=== PATIENT | female | born 1960 | race Caucasian/White ===

== ENCOUNTER 2017-06-05 08:20 | Emergency (ER) | payer OTHER ==
[2017-06-05 08:30] VITALS: RESP 18
--- NOTE | 2017-06-05 08:41 | CPEKG ---
Heart Rate: 71 RR Interval: 845 P-R Interval: 196 QRSD Interval: 98 QT Interval: 396 QTC Interval: 431 P [place]: 8 QRS [place]: 39 T Wave [place]: 56 EKG Severity - NORMAL ECG - EKG Impression: SINUS RHYTHM Electronically Signed By: Katerine Rojas 05-Jun-2017 16:22:13
--- NOTE | 2017-06-05 08:42 | EDPHY ---
HPI/HX/ROS/PE/MDM Narrative: CHIEF COMPLAINT: Chest pain HISTORY OF PRESENT ILLNESS: The patient is a 57-year-old female presenting with intermittent chest pain for the past few weeks. The pain lasts for a few minutes in duration. She had 1 episode 2 days ago that remained constant throughout the day. She has occasional lightheadedness and shortness of breath associated with the chest pain. She has noticed increased shortness of breath with exertion over the past month. This morning she developed chest pain around 7am. She had associated nausea, no emesis. No known aggravating or alleviating factors. No fever, chills, vomiting , diarrhea, urinary complaints, headache. Patient has a history of reflux, on Omeprazole. She states she has throat burning with her reflux, no chest pain. No history of DVT or PE. Father with cardiac history, [place] age 55. REVIEW OF SYSTEMS: Aside from elements discussed in the HPI, a comprehensive 10-point review of systems was reviewed and is negative. PAST MEDICAL HISTORY: Colitis, Hypertension, Anxiety SOCIAL HISTORY: Occasional alcohol. Nonsmoker VITAL SIGNS: Reviewed by me GENERAL: Well-developed, well-nourished, resting comfortably in no respiratory distress. HEENT: Atraumatic. Eyes: No icterus, no injection. Mouth: moist mucous membranes. No erythema or lesions. Neck: supple with no adenopathy. LUNGS: Clear to auscultation bilaterally, no wheezes, rhonchi or rales. CARDIAC: Regular rate and rhythm, no rubs, murmurs or gallops. ABDOMEN: Soft, nontender, nondistended, bowel sounds normal. BACK: No CVA tenderness. EXTREMITIES: No trauma. No edema. Range of motion is normal throughout. NEURO: Alert and oriented, grossly nonfocal. SKIN: Warm and dry, no rash. PSYCHIATRIC: Normal mentation, no agitation. ED Course: 12-LEAD EKG: Please see the full report in [facility]. My interpretation: Sinus rhythm. No ischemic changes. Chest x-ray is negative. D-dimer is normal. Troponin is normal. Lab work is otherwise unremarkable. 10:35 a.m.: I spoke to the hospitalist team. The patient will be admitted to Dr. Sanchez for further evaluation and observation. 10:50 a.m.: I discussed findings with the patient. I recommended admission to the hospital. I held a long discussion with the patient as well as her concerning the limitations of the emergency department evaluation and the need for further testing and serial enzymes. Patient reports that she does not want to be admitted to the hospital. She understands that she needs to have urgent risk stratification. She states that she does not want to stay overnight in the hospital. She also reports to me that she will not be able to get a stress test on Wednesday or Wednesday and that she is leaving the country on . I again advised the patient that given her history urgent stress test urgent risk stratification was certainly appropriate and she continued to decline my recommendations. Plan for serial Troponin. Repeat Troponin was normal. Patient would like to be discharged home. Strict return precautions given. Patient was given the number to [facility] and encouraged to follow up on Wednesday if at all possible for stress testing. I believe the patient is competent decision maker. Her was also in the room. They understand the limitations of the emergency department evaluation. The understand the importance of follow-up as well as importance of returning to the emergency department if the symptom complex should return or worsen. MDM: After history and physical examination, the differential for chest pain was considered, including but not limited to, myocardial ischemia, acute coronary syndrome, pulmonary embolus, chest wall pain, GERD, esophageal spasm, reflux, pleural inflammation and pulmonary infectious causes. - Data Points Imaging Results: Imaging Impressions Chest X-Ray 06/05/17 09:29 Impression: No acute findings in the chest. Imaging: I viewed and interpreted images myself Laboratory Results: Laboratory Results 06/05/17 08:40 06/05/17 08:40 06/05/17 06/05/17 06/05/17 12:40 11:03 08:40 WBC RBC Hgb Hct MCV MCH MCHC RDW Plt Count MPV Neut % (Auto) Lymph % (Auto) [place] % (Auto) Eos % (Auto) Baso % (Auto) Nucleat RBC Rel Count Absolute Neuts (auto) Absolute Lymphs (auto) Absolute Monos (auto) Absolute Eos (auto) Absolute Basos (auto) Absolute Nucleated RBC Immature Gran % Immature Gran # D-Dimer Sodium 140 mEq/L mEq/L (134-144) Potassium 4.0 mEq/L mEq/L (3.5-5.2) Chloride 103 mEq/L mEq/L (97-110) Carbon Dioxide 25 mEq/l mEq/l (22-31) Anion Gap 12 mEq/L mEq/L (8-16) BUN 15 mg/dL mg/dL (7-23) Creatinine 0.7 mg/dL mg/dL (0.6-1.0) Estimated GFR > 60 Glucose 86 mg/dL mg/dL (70-100) Calcium 9.5 mg/dL mg/dL (8.5-10.4) Total Bilirubin 0.6 mg/dL mg/dL (0.1-1.4) Conjugated Bilirubin 0.4 mg/dL mg/dL (0.0-0.5) Unconjugated Bilirubin 0.2 mg/dL mg/dL (0.0-1.1) AST 25 IU/L IU/L (14-46) ALT 26 IU/L IU/L (9-52) Alkaline Phosphatase 78 IU/L IU/L (38-126) Creatine Kinase 82 IU/L IU/L (0-156) CK-MB (CK-2) Fraction 0.71 ng/mL ng/mL (0.00-3.19) Troponin I < 0.012 ng/mL ng/mL < 0.012 ng/mL ng/mL < 0.012 ng/mL ng/mL (0.000-0.034) (0.000-0.034) (0.000-0.034) NT-Pro-B Natriuret Pep 91 pg/mL pg/mL (0-125) Total Protein 6.7 g/dL g/dL (6.3-8.2) Albumin 4.1 g/dL g/dL (3.5-5.0) Lipase 66 IU/L IU/L (23-300) 06/05/17 06/05/17 08:40 08:40 WBC 4.64 10^3/uL 10^3/uL (3.80-9.50) RBC 4.55 10^6/uL 10^6/uL (4.18-5.33) Hgb 12.6 g/dL g/dL (12.6-16.3) Hct 39.8 % % (38.0-47.0) MCV 87.5 fL fL (81.5-99.8) MCH 27.7 pg L pg (27.9-34.1) MCHC 31.7 g/dL L g/dL (32.4-36.7) RDW 15.7 % H % (11.5-15.2) Plt Count 262 10^3/uL 10^3/uL (150-400) MPV 9.4 fL fL (8.7-11.7) Neut % (Auto) 66.1 % % (39.3-74.2) Lymph % (Auto) 24.1 % % (15.0-45.0) [place] % (Auto) 6.7 % % (4.5-13.0) Eos % (Auto) 2.2 % % (0.6-7.6) Baso % (Auto) 0.9 % % (0.3-1.7) Nucleat RBC Rel Count 0.0 % % (0.0-0.2) Absolute Neuts (auto) 3.07 10^3/uL 10^3/uL (1.70-6.50) Absolute Lymphs (auto) 1.12 10^3/uL 10^3/uL (1.00-3.00) Absolute Monos (auto) 0.31 10^3/uL 10^3/uL (0.30-0.80) Absolute Eos (auto) 0.10 10^3/uL 10^3/uL (0.03-0.40) Absolute Basos (auto) 0.04 10^3/uL 10^3/uL (0.02-0.10) Absolute Nucleated RBC 0.00 10^3/uL 10^3/uL (0-0.01) Immature Gran % 0.0 % % (0.0-1.1) Immature Gran # 0.00 10^3/uL 10^3/uL (0.00-0.10) D-Dimer 0.32 ug/mLFEU ug/mLFEU (0.00-0.50) Sodium Potassium Chloride Carbon Dioxide Anion Gap BUN Creatinine Estimated GFR Glucose Calcium Total Bilirubin Conjugated Bilirubin Unconjugated Bilirubin AST ALT Alkaline Phosphatase Creatine Kinase CK-MB (CK-2) Fraction Troponin I NT-Pro-B Natriuret Pep Total Protein Albumin Lipase Medications Given: Discontinued Medications Aspirin (Aspirin) 324 mg PO EDNOW ONE Stop: 06/05/17 09:34 Last Admin: 06/05/17 09:38 Dose: 324 mg General Time Seen by Provider: 06/05/17 08:34 Initial Vital Signs: Initial Vital Signs Temperature (C) 36.4 C 06/05/17 08:27 Heart Rate 72 06/05/17 08:27 Respiratory Rate 18 06/05/17 08:27 Blood Pressure 140/76 H 06/05/17 08:27 O2 Sat (%) 96 06/05/17 08:27 O2 Delivery Mode Room Air O2 (L/minute) 2 Allergies/Adverse Reactions: No Known Allergies Allergy (Verified 05/25/15 07:32) Home Medications: Medication Instructions Recorded Acetaminophen [Tylenol Arthritis] 650 mg PO DAILY 06/05/17 Bupropion HCl [Wellbutrin Xl] 300 mg PO DAILY 06/05/17 Escitalopram Oxalate [Lexapro] 10 mg PO DAILY 06/05/17 Escitalopram Oxalate [Lexapro] 20 mg PO DAILY 06/05/17 Gabapentin [Neurontin 300 MG (*)] 300 mg PO DAILY 06/05/17 Gabapentin [Neurontin] 600 mg PO HS 06/05/17 Naproxen Sodium [Aleve 220 MG (*)] 440 mg PO DAILY 06/05/17 Omeprazole [Prilosec 20 mg] 20 mg PO DAILY 06/05/17 Prazosin HCl [Minipress 1mg (*)] 1 mg PO HS 06/05/17 Valsartan/Hydrochlorothiazide 1 each PO DAILY 06/05/17 [Valsartan-Hctz 160-25 mg Tab] buPROPion XL [Wellbutrin Xl] 150 mg PO DAILY 06/05/17 Departure - Departure Disposition: Home, Routine, Self-Care Clinical Impression: Chest pain Qualifiers: Chest pain type: unspecified Qualified Code(s): R07.9 - Chest pain, unspecified Condition: Good Instructions: Chest Pain (ED) Additional Instructions: 1. I recommend taking 81mg Aspirin daily. 2. You been recommended to be admitted to the hospital. You understand that we cannot rule out coronary artery disease. You understand the delay in further testing may result in serious consequences such as heart attack, heart failure, palpitations, irregular heart rate, seizure, stroke. 3. You have been referred to the correctional case manager mechanical intern below. Please call to arrange followup. 3. Return to the Emergency Department with severe chest pain, shortness of breath, palpitations, nausea, or worsening concerns. Referrals: Earlene Guevara MD [Primary Care Provider] - As per Instructions Clarisse Burnham MD [Medical Doctor] - As per Instructions (Cardiology) Report Scribed for: Katerine Rojas Report Scribed by: Albina Dykes Date of Report: 06/05/17 Time of Report: 08:41 Physician Review and Approval Statement: Portions of this note were transcribed by a medical biller coder. I personally performed a history, physical exam, medical decision making, and confirmed accuracy of information the transcribed note.
[2017-06-05 09:33] LABS: ADD DIFF? NO; ADD MORPH? NO; ADD SCAN? NO; ATYPICAL LYMPHOCYTE FLAG 0 (0-99); FRAGMENT RBC FLAG 0 (0-99); HEMATOCRIT 39.8 % (38.0-47.0); HEMOGLOBIN 12.6 g/dL (12.6-16.3); LEFT SHIFT FLG 0 (0-99); LIPEMIA HEMOLYSIS FLAG 80 (0-99); MEAN CELL HEMOGLOBIN 27.7 pg (27.9-34.1); MEAN CELL HEMOGLOBIN CONCENTR. 31.7 g/dL (32.4-36.7); MEAN CELL VOLUME 87.5 fL (81.5-99.8); MEAN PLATELET VOLUME 9.4 fL (8.7-11.7); PLATELET CLUMPS FLAG 20 (0-99); PLATELET COUNT 262 10^3/uL (150-400); RED BLOOD CELL COUNT 4.55 10^6/uL (4.18-5.33); RED CELL DISTRIBUTION WIDTH 15.7 % (11.5-15.2)
[2017-06-05] MEDS: ASPIRIN 81 MG CHEWABLE TAB PO ONE ×2 (09:38)
[2017-06-05 09:42] LABS: ALANINE AMINOTRANSFERASE 26 IU/L (9-52); ALBUMIN 4.1 g/dL (3.5-5.0); ALKALINE PHOSPHATASE 78 IU/L (38-126); ANION GAP 12 mEq/L (8-16); ASPARTATE AMINOTRANSFERASE 25 IU/L (14-46); BILIRUBIN,TOTAL 0.6 mg/dL (0.1-1.4); BILIRUBIN-CONJUGATED 0.4 mg/dL (0.0-0.5); BILIRUBIN-UNCONJUGATED 0.2 mg/dL (0.0-1.1); CALCIUM 9.5 mg/dL (8.5-10.4); CARBON DIOXIDE 25 mEq/l (22-31); CHLORIDE 103 mEq/L (97-110); CREATININE 0.7 mg/dL (0.6-1.0); GLOMERULAR FILTRATION RATE > 60; GLUCOSE 86 mg/dL (70-100); SODIUM 140 mEq/L (134-144); TOTAL PROTEIN 6.7 g/dL (6.3-8.2)
[2017-06-05 09:53] LABS: TROPONIN I < 0.012 ng/mL (0.000-0.034)
[2017-06-05] MEDS ORDERED: ONDANSETRON DISINTEGRATING 4 MG TAB PO PRN (10:44)
[2017-06-05] MEDS ORDERED: HYDROCODONE/APAP 5/325 TAB PO PRN (10:44)
[2017-06-05] MEDS ORDERED: ACETAMINOPHEN 325 MG TAB PO PRN (10:44)
[2017-06-05] MEDS ORDERED: ONDANSETRON 4 MG/2 ML VIAL IVP PRN (10:44)
[2017-06-05 11:30] LABS: CREATINE KINASE-MB FRACTION 0.71 ng/mL (0.00-3.19); TROPONIN I < 0.012 ng/mL (0.000-0.034)
[2017-06-05 12:22] VITALS: TEMP 98.4
[2017-06-05 14:15] VITALS: BP 117/67; PULSE 78; O2SAT 97
== END 2017-06-05 14:15 | disposition home or self-care (01) ==
LOC: UNDOADMOB 10:30
DX: R07.9 Chest pain, unspecified (principal); I10 Essential (primary) hypertension